=== PATIENT | male | born 1955 | race Two or more races ===

== ENCOUNTER → 2018-03-15 | Outpatient (CLI) | payer OTHER ==
[~2018-03-15] MED LIST: IOPAMIDOL 370 MG/ML 200 ML INFUS..BTL INJ ONE; SODIUM CHLORIDE 0.9% 250ML 250 ML ONE
[2018-03-15 17:00] LABS: BLOOD UREA NITROGEN 19 mg/dL (7-26); BUN/CREATININE RATIO 18 (6-25); CREATININE, SERUM 1.05 mg/dL (0.72-1.25); EST GLOMERULAR FILTRATION RATE > 60 ML/MIN (60-)
--- NOTE | 2018-03-15 18:50 | Diagnostic Imaging Report ---
PROCEDURE: CT ABDOMEN \T\ PELVIS W/WO CONTRAST TECHNIQUE: The abdomen and pelvis were scanned utilizing a multidetector helical scanner from the diaphragm to the lesser trochanter before and after the IV administration of 150 cc of Isovue 370 and the oral administration of water. Coronal and sagittal multiplanar reformations were obtained. COMPARISON: None. INDICATIONS: MICROSCOPIC HEMATURIA FINDINGS: LOWER THORAX: 6 mm calcified granuloma in the right lower lobe (series 3, image 10). Lung bases are otherwise clear.. HEPATOBILIARY: Subcentimeter hypodense lesions in hepatic segments VII and VIII (series 6, images 30 to, 33 and 34), which are too small to characterize, but likely represent small cysts. No other focal lesions. No biliary ductal dilation. Gallbladder is unremarkable. SPLEEN: No splenomegaly. PANCREAS: No focal masses or ductal dilatation. ADRENALS: No adrenal nodules. KIDNEYS/URETERS: 6-7 mm nonobstructing calculus in the left interpolar region (series 3, image 85). 3 mm nonobstructing calculus in the inferior pole of the left kidney (series 3, image 101). No ureteral calculi, hydronephrosis, or obstruction. No solid enhancing masses. There is good contrast opacification of bilateral renal collecting systems, renal pelves, and ureters. No filling defects, strictures, or extrinsic compressions. PELVIC ORGANS/BLADDER: No focal lesions or significant wall thickening. Prostate is unremarkable.. PERITONEUM / RETROPERITONEUM: No free air or fluid. LYMPH NODES: No lymphadenopathy. VESSELS: Mild atherosclerotic calcification of the abdominal aorta and proximal iliac vessels. GI TRACT: No bowel dilation or evidence of obstruction. Appendix is well identified and normal in caliber. BONES AND SOFT TISSUES: No aggressive lytic lesions. Multilevel degenerative disc changes in the lumbosacral spine, worse at L4-L5, and L5-S1. Mild degenerative changes in bilateral sacroiliac joints. Small bilateral fat containing inguinal hernias. IMPRESSION: 1. 3 and 6-7 mm nonobstructing calculi in the left kidney. No right renal, ureteral or bladder calculi, hydronephrosis, or obstruction. 2. No filling defects, strictures, or extrinsic compressions in the opacified portions of the genitourinary tract. Flavio Zapata M.D. Dictated by: Flavio Zapata M.D. on 03/15/2018 at 18:52 Electronically approved by: Flavio Zapata M.D. on 03/15/2018 at 18:52
== END ==
LOC: CT 16:03
PROVIDERS: ATTEND Urology
DX: R31.21 Asymptomatic microscopic hematuria (principal)
CPT/HCPCS: 36415; 74178; 82565; 84520; J7050; Q9967

== ENCOUNTER → 2018-06-07 | Day surgery (SDC) | payer OTHER ==
--- NOTE | 2018-06-05 18:18 | Diagnostic Imaging Report ---
PROCEDURE: Frontal and lateral views of the chest. COMPARISON: None. INDICATIONS: pre-op FINDINGS: Tip of the right lung apex is outside the field of view. Lines/tubes: None. Lungs: The lungs are well inflated and clear. There is no evidence of pneumonia or pulmonary edema. Pleura: There is no pleural effusion or pneumothorax. Heart and mediastinum: The heart and the mediastinum are normal. Bones: No acute bony abnormality. IMPRESSION: No acute cardiopulmonary disease. Dictated by: Oumar Bueno M.D. on 06/05/2018 at 18:23 Electronically approved by: Oumar Bueno M.D. on 06/05/2018 at 18:23
[~2018-06-07] MED LIST changes: +ATORVASTATIN CA80 MG PO; +CEFTRIAXONE SOD 1 GM VIAL ONE; +DESFLURANE 240 ML BTL INH ONE; +DEXAMETHASONE SOD PHOS INJ 4 MG/ML VIAL ONE; +ELIQUIS PO; +FENTANYL CITRATE/PF 100MCG/2 ML INJ ONE; +IOPAMIDOL 300MG/ML 50ML INFUS..BTL IV ONE; -IOPAMIDOL 370 MG/ML 200 ML INFUS..BTL INJ ONE; +LIDOCAINE HCL 2% LOCAL INJ 5 ML SDV VIAL INJ ONE; +MIDAZOLAM HCL 2 MG/2 ML VIAL ONE; +MULTI-VITAMIN1 EACH PO; +ONDANSETRON HCL INJ 2 MG/ML VIAL ONE; +PROPOFOL IV EMULSION 10 MG/ML 20 ML VIAL ONE; -SODIUM CHLORIDE 0.9% 250ML 250 ML ONE
--- NOTE | 2018-06-07 11:24 | Diagnostic Imaging Report ---
PROCEDURE:X-RAY ABDOMEN - KUB COMPARISON:[facility], CT ABDOMEN/PELVIS WOW, 03/15/2018, 17:34. INDICATIONS:PRE-OP LEFT ESWL FINDINGS: A 6 mm calcification projects over the left kidney, representing left renal stone on prior CT. Additional stone is likely obscured by overlying bowel gas. No stones projecting over the expected location of the ureters. There is a non-obstructed bowel-gas pattern. There are no acute osseous abnormalities. The lung bases are clear. CONCLUSION: A 6 mm left renal stone. Additional stone is likely obscured by overlying bowel gas. Dictated by: VERONICA PARKER M.D. on 06/07/2018 at 10:05 Electronically approved by: VERONICA PARKER M.D. on 06/07/2018 at 10:05
--- NOTE | 2018-07-30 14:08 | Operative Report ---
DATE OF PROCEDURE: June 07, 2018 PREOPERATIVE DIAGNOSES 1. Left nephrolithiasis. 2. Microhematuria. POSTOPERATIVE DIAGNOSES 1. Left nephrolithiasis. 2. Microhematuria. PROCEDURES PERFORMED 1. Left-sided extracorporeal shock lithotripsy (separate staged procedure performed for the left mid-caliceal 7-mm nephrolithiasis). 2. Cystourethroscopy with bilateral ureteral catheterization and retrograde ureteropyelography (separate procedure performed for microhematuria). 3. Interpretation of retrograde ureteropyelography. 4. Supervision of fluoroscopy. No radiologist present. ANESTHESIA: General. COMPLICATIONS: None. CLINICAL SUMMARY: Sumeet Saldana is a 63-year-old man with the above preoperative diagnoses. He is brought for the above procedures. He is aware of the risks of bleeding, infection, injury to adjacent structures, need for additional procedures and elected to proceed. OPERATIVE PROCEDURE IN DETAIL: Informed consent was verified. Sumeet Saldana was properly identified, taken to the operating room and placed on the lithotripsy table in the supine position. Anesthesia was uneventfully begun. The patient's left nephrolithiasis was localized with biplanar fluoroscopy. Total of 3000 shocks were delivered with some degree of fragmentation noted. The patient was carefully and gently repositioned in the dorsal lithotomy position with all pressure points well padded. His genitalia were prepared and draped in the usual sterile fashion. A 22.5-Kenyan cystoscope sheath with visual obturator in place was atraumatically inserted in the patient's urethra. It was guided down the unremarkable distal urethra, past some wide-caliber bands that were not obstructing, went through the prostate bed which was significant for visually obstructing bilobar BPH, and entered the patient's bladder which exhibited grade-2 trabeculations. There no tumors, no stones and no diverticula. Normally positioned and configured ureteral orifices were identified. An 8-Kenyan catheter was used cannulate each ureter, and retrograde ureteropyelograms were performed. Interpretation of retrograde ureteropyelography: Contrast was instilled in a retrograde fashion bilaterally. On the left-hand side, we identified filling defects in the middle venecia corresponding to the lithotripsy procedure. Otherwise, there were no tumors, no stones and no diverticula. Unobstructed drainage was observed bilaterally fluoroscopically. The patient's bladder was drained. Cystoscope was withdrawn. The patient was uneventfully reversed from anesthesia and taken to the recovery room in stable condition. Explicit postoperative instructions were given. Will follow the patient up in the office. In the future, we will obtain uroflowmetry and bladder ultrasonography to evaluate his BPH. Job#: [id number] JS
--- OUTSIDE RECORDS SUMMARY | 2018-08-01 00:41 | XMS REPORT ---
Author Author [facility] Address Unknown Phone Unavailable Care Team Providers Care Service Station Cashier Name Role Phone SHAYNE DYE Unavailable Unavailable Problems This patient has no known problems. Allergies, Adverse Reactions, Alerts This patient has no known allergies or adverse reactions. Medications This patient has no known medications. Results Test Description Test Time Test Comments Text Results Atomic Results Result Comments ABDOMEN-1VIEW (KUB) 2018-06-07 10:05:00 [place] [address] Patient Name: ENMA LÓPEZ MR #: [id number] : 1955 Age/Sex: 63/M Req #: [id number] Adm Physician: Ordered by: SHAYNE DYE MD Report #: [id number] Location: OR Room/Bed: Procedure: [id number] DX/ABDOMEN-1VIEW (KUB) Exam Date: 06/07/18 Exam Time: 0545 REPORT STATUS: Signed PROCEDURE: X- RAY ABDOMEN - KUB COMPARISON: [facility], CT ABDOMEN/ PELVIS WOW, 03/15/2018, 17:34. INDICATIONS: PRE-OP LEFT ESWL FINDINGS: A 6 mm calcification projects over the left kidney, representing left renal stone on prior CT. Additional stone is likely obscured by overlying bowel gas. No stones projecting over the expected location of the ureters. There is a non-obstructed bowel-gas pattern. There are no acute osseous abnormalities. The lung bases are clear. CONCLUSION: A 6 mm left renal stone. Additional stone is likely obscured by overlying bowel gas. Dictated by: VERONICA PARKER M.D. on 06/07/2018 at 10:05 Electronically approved by: VERONICA PARKER M.D. on 06/07/2018 at 10:05 Dictated By: VERONICA PARKER MD [id number] COPY TO: SHAYNE DYE MD CHEST 2 VIEWS 2018-06-05 18:23:00 [place] [address] Patient Name: ENMA LÓPEZ MR #: [id number] : 1955 Age/Sex: 63/M Req #: [id number] Adm Physician: Ordered by: SHAYNE DYE MD Report #: [id number] Location: OR Room/Bed: Procedure: [id number] DX/CHEST 2 VIEWS Exam Date: 06/05/18 Exam Time: 1756 REPORT STATUS: Signed PROCEDURE: Frontal and lateral views of the chest. COMPARISON: None. INDICATIONS: pre-op FINDINGS: Tip of the right lung apex is outside the field of view. Lines/tubes: None. Lungs: The lungs are well inflated and clear. There is no evidence of pneumonia or pulmonary edema. Pleura: There is no pleural effusion or pneumothorax. Heart and mediastinum: The heart and the mediastinum are normal. Bones: No acute bony abnormality. IMPRESSION: No acute cardiopulmonary disease. Dictated by: Oumar Canchola M.D. on 06/05/2018 at 18:23 Electronically approved by: Oumar Canchola M.D. on 06/05/2018 at 18:23 Dictated By: OUMAR CANCHOLA MD 22 Transcribed By: COOKIE on 06/05/181822 COPY TO: SHAYNE DYE MD CT ABDOMEN/PELVIS WOW [place] [address] Patient Name: ENMA LÓPEZ MR #: [id number] : 1955 Age/Sex: 62/M Req #: [id number] Adm Physician: Ordered by: SHAYNE DYE MD Report #: [id number] Location: CT Room/Bed: Procedure: [id number] CT/CT ABDOMEN/PELVIS WOW Exam Date: 03/15/18 Exam Time: 1730 REPORT STATUS: Signed PROCEDURE: CT ABDOMEN T PELVIS W/WO CONTRAST TECHNIQUE: The abdomen and pelvis were scanned utilizing a multidetector helical scanner from the diaphragm to the lesser trochanter before and after the IV administration of 150 cc of Isovue 370 and the oral administration of water. Coronal and sagittal multiplanar reformations were obtained. COMPARISON: None. INDICATIONS: MICROSCOPIC HEMATURIA FINDINGS: LOWER THORAX: 6 mm calcified granuloma in the right lower lobe (series 3, image 10). Lung bases are otherwise clear.. HEPATOBILIARY: Subcentimeter hypodense lesions in hepatic segments VII and VIII (series 6, images 30 to, 33 and 34), which are too small to characterize, but likely represent small cysts. No other focal lesions. No biliary ductal dilation. Gallbladder is unremarkable. SPLEEN: No splenomegaly. PANCREAS: No focal masses or ductal dilatation. ADRENALS: No adrenal nodules. KIDNEYS/URETERS: 6-7 mm nonobstructing calculus in the left interpolar region (series 3, image 85). 3 mm nonobstructing calculus in the inferior pole of the left kidney (series 3, image 101). No ureteral calculi, hydronephrosis, or obstruction. No solid enhancing masses. There is good contrast opacification of bilateral renal collecting systems, renal pelves, and ureters. No filling defects, strictures, or extrinsic compressions. PELVIC ORGANS/BLADDER: No focal lesions or significant wall thickening. Prostate is unremarkable.. PERITONEUM / RETROPERITONEUM: No free air or fluid. LYMPH NODES: No lymphadenopathy. VESSELS: Mild atherosclerotic calcification of the abdominal aorta and proximal iliac vessels. GI TRACT: No bowel dilation or evidence of obstruction. Appendix is well identified and normal in caliber. BONES AND SOFT TISSUES: No aggressive lytic lesions. Multilevel degenerative disc changes in the lumbosacral spine, worse at L4-L5, and L5- S1. Mild degenerative changes in bilateral sacroiliac joints. Small bilateral fat containing inguinal hernias. IMPRESSION: 1. 3 and 6-7 mm nonobstructing calculi in the left kidney. No right renal, ureteral or bladder calculi, hydronephrosis, or obstruction. 2. No filling defects, strictures, or extrinsic compressions in the opacified portions of the genitourinary tract. Kenn Zapata M.D. Dictated by: Kenn Zapata M.D. on 03/15/2018 at 18:52 Electronically approved by : Kenn Zapata M.D. on 03/15/2018 at 18:52 Dictated By: KENN ZAPATA MD 51 Transcribed By: COOKIE on 03/15/181851 COPY TO: SHAYNE DYE MD
--- OUTSIDE RECORDS SUMMARY | 2018-08-01 00:41 | XMS REPORT | Summary of Care ---
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) - Chronic diastolic (congestive) heart failure (Final) - Metabolic syndrome (Final) - Unspecified atrial flutter (Final) - Paroxysmal atrial fibrillation (Final) - Hypertensive heart disease with heart failure (Final) - Dysphagia, unspecified (Final) - Dysarthria and anarthria (Final) - Slurred speech (Final) - Coma scale, best motor response, obeys commands, at arrival to emergency department (Final) - Coma scale, eyes open, spontaneous, at arrival to emergency department (Final) - Coma scale, best verbal response, oriented, at arrival to emergency department ( Final) - NIHSS score 1 (Final) - Dizziness and giddiness (Final) - Hyperlipidemia, unspecified (Final) - Constipation, unspecified (Final) - 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) - half-way (current) use of aspirin (Final) - half-way (current) use of antithrombotics/antiplatelets (Final) - Discharge Disposition: Home or Self Care Attending Physician: Ronny Sheikh MD Admitting Physician: Ronny Sheikh MD Vital Signs 1 2 3 Most recent to oldest [Reference Range]: 185.42 cm (12/23/17 8:07 PM) Height 98.7 DegF (12/31/17 3:49 PM) 98.5 DegF (12/31/17 11:47 AM) 97.5 DegF (12/31/17 7:38 AM) Temperature Oral [96.4-99.1 DegF] 111/73 mmHg (12/31/17 3:49 PM) 132/85 mmHg (12/31/17 11:47 AM) 138/85 mmHg (12/31/17 7:38 AM) Blood Pressure [90-140/60-90 mmHg] 17 BRMIN (12/31/17 11:47 AM) 17 BRMIN (12/31/17 7:38 AM) 16 BRMIN (12/31/17 4:00 AM) Respiratory Rate [14-20 BRMIN] 62 bpm (12/31/17 3:49 PM) 68 bpm (12/31/17 11:47 AM) 57 bpm *LOW* (12/31/17 7:38 AM) Peripheral Pulse Rate [60-100 bpm] 100.085 kg (12/23/17 8:07 PM) 90.909 kg (12/23/17 2:24 PM) Weight 29.11 m2 (12/23/17 8:07 PM) Body Mass Index Problem List Condition Effective Dates Status Health Status Informant History of Active stroke(Confirmed) Hyperlipidemia(Confi Active rmed) Hypertension(Confirm Active ed) Ischemic Active stroke(Confirmed) Insulin Active resistance(Confirmed ) Allergies, Adverse Reactions, Alerts Substance Reaction Severity Status NKDA Active Medications acetaminophen 650 mg, Route: PO, Drug form: TAB, Q4H, Dosing Weight 90.909, kg, PRN Pain 1-3/ Temp > 100.4 F, Start date: 12/23/17 18:37:00 RADIOISOTOPE TECHNICIAN, Duration: 30 day, Stop date: 01/22/18 18:36:00 CDT Start Date: 12/23/17 Stop Date: 12/23/17 Status: Discontinued Alphagan P 0.1% ophthalmic solution 1 drp, BOTH EYES, BID, 0 Refill(s) Start Date: 12/29/17 Stop Date: 12/31/17 Status: Discontinued AMIODarone 200 mg, 1 tab, Route: PO, Drug form: TAB, Daily, Dosing Weight 100.085, kg, Start date: 12/25/17 9:00:00 RADIOISOTOPE TECHNICIAN, Duration: 30 day, Stop date: 01/23/18 9:00:00 CDT Notes: (Same as: Cordarone) Start Date: 12/25/17 Stop Date: 12/31/17 Status: Discontinued AMIODarone 200 mg oral tablet 200 mg=1 tab, PO, Daily, # 30 tab, 0 Refill(s), Pharmacy: [facility] Start Date: 12/31/17 Stop Date: 01/30/18 Status: Ordered apixaban 5 mg oral tablet 5 mg=1 tab, PO, Q12H, # 60 tab, 0 Refill(s), Pharmacy: [facility] Start Date: 12/31/17 Stop Date: 01/30/18 Status: Ordered aspirin 81 mg tablet, enteric coated 81 mg=1 tab, PO, Q24H, # 30 tab, 0 Refill(s), Pharmacy: [facility] Start Date: 12/31/17 Stop Date: 12/31/17 Status: Discontinued aspirin 81 mg tablet, enteric coated 81 mg, 1 tab, Route: PO, Drug form: ECTAB, Q24H, Dosing Weight 90.909, kg, Start date: 12/23/17 19:00:00 RADIOISOTOPE TECHNICIAN, Duration: 30 day, Stop date: 01/21/18 19:00: 00 CDT Notes: Do not crush or chew.(Same As: Ecotrin) Start Date: 12/23/17 Stop Date: 12/24/17 Status: Discontinued atorvastatin 10 mg, 1 tab, Route: PO, Drug form: TAB, Bedtime, Dosing Weight 90.909, kg, Start date: 12/23/17 21:00:00 RADIOISOTOPE TECHNICIAN, Duration: 30 day, Stop date: 01/21/18 21:00: 00 CDT Notes: (Same As: Lipitor) Start Date: 12/23/17 Stop Date: 12/24/17 Status: Discontinued atorvastatin 40 mg oral tablet 80 mg=2 tab, PO, Bedtime, # 60 tab, 0 Refill(s), Pharmacy: [facility] Start Date: 12/31/17 Stop Date: 01/30/18 Status: Ordered Azopt 1% ophthalmic suspension 1 drp, BOTH EYES, BID, 0 Refill(s) Start Date: 12/29/17 Stop Date: 12/31/17 Status: Discontinued clopidogrel 75 mg, 1 tab, Route: PO, Drug form: TAB, ONCE, Dosing Weight 100.085, kg, Priority: NOW, Start date: 12/23/17 23:16:00 RADIOISOTOPE TECHNICIAN, Stop date: 12/23/17 23:16:00 RADIOISOTOPE TECHNICIAN Notes: (Same As: Plavix) Start Date: 12/23/17 Stop Date: 12/23/17 Status: Completed clopidogrel 75 mg, 1 tab, Route: PO, Drug form: TAB, Daily, Dosing Weight 90.909, kg, Start date: 12/24/17 9:00:00 RADIOISOTOPE TECHNICIAN, Duration: 30 day, Stop date: 01/22/18 9:00:00 CDT Notes: (Same As: Plavix) Start Date: 12/24/17 Stop Date: 12/24/17 Status: Discontinued docusate 100 mg, Route: PO, Drug form: CAP, BID, Dosing Weight 90.909, kg, Start date: 9:00:00 RADIOISOTOPE TECHNICIAN, Duration: 30 day, Stop date: 01/22/18 17:00:00 CDT Start Date: 12/24/17 Stop Date: 12/23/17 Status: Canceled docusate sodium 100 mg oral capsule 100 mg, 1 cap, Route: PO, Drug form: CAP, BID, Dosing Weight 100.085, kg, Start date: 12/29/17 17:00:00 RADIOISOTOPE TECHNICIAN, Duration: 30 day, Stop date: 01/28/18 9:00:00 CDT Notes: (Same as: Colace) (Do Not Crush) Start Date: 12/29/17 Stop Date: 12/31/17 Status: Discontinued Dulcolax Laxative 10 mg, 1 supp, Route: WV, Drug form: SUPP, ONCE, Dosing Weight 100.085, kg, Start date: 12/27/17 10:43:00 RADIOISOTOPE TECHNICIAN, Stop date: 12/27/17 10:43:00 RADIOISOTOPE TECHNICIAN Notes: (Same As: Dulcolax, Bisco-Lax) Start Date: 12/27/17 Stop Date: 12/27/17 Status: Completed Eliquis 5 mg, 1 tab, Route: PO, Drug form: TAB, Q12H, Dosing Weight 100.085, kg, Start date: 12/24/17 21:00:00 RADIOISOTOPE TECHNICIAN, Duration: 30 day, Stop date: 01/23/18 9:00:00 CDT Notes: Same as: Eliquis Start Date: 12/24/17 Stop Date: 12/31/17 Status: Discontinued glycerin adult rectal suppository 1 supp, Route: WV, Drug Form: SUPP, Dosing Weight 100.085, kg, ONCE, NOW, Start date: 12/24/17 10:10:00 RADIOISOTOPE TECHNICIAN, Stop date: 12/24/17 10:10:00 RADIOISOTOPE TECHNICIAN Start Date: 12/24/17 Stop Date: 12/24/17 Status: Completed heparin 5,000 unit, Route: SUB-Q, Q8H, Dosing Weight 90.909, kg, Start date: 12/24/17 0: 00:00 RADIOISOTOPE TECHNICIAN, Stop date: 01/22/18 16:00:00 CDT Start Date: 12/24/17 Stop Date: 12/23/17 Status: Canceled hydrALAZINE 10 mg, 0.5 mL, Route: IV, Drug form: INJ, Q6H, Dosing Weight 90.909, kg, PRN Other -See Comment, Start date: 12/23/17 20:17:00 RADIOISOTOPE TECHNICIAN, Duration: 30 day, Stop date: 01/22/18 20:16:00 CDT Notes: (Same as: Apresoline)Push over 5 minutes Start Date: 12/23/17 Stop Date: 12/31/17 Status: Discontinued lactulose 10 g/15 mL oral syrup 20 gm, 30 ml, Route: PO, Drug form: SYRP, Q8H, Dosing Weight 100.085, kg, PRN Constipation, Start date: 12/24/17 9:44:00 RADIOISOTOPE TECHNICIAN, Duration: 30 day, Stop date: 9:43:00 CDT Notes: (Same as:Chronulac) Start Date: 12/24/17 Stop Date: 12/31/17 Status: Discontinued latanoprost ophthalmic 1 drp, Bedtime, 0 Refill(s) Start Date: 12/29/17 Stop Date: 12/31/17 Status: Discontinued Lipitor 80 mg, 2 tab, Route: PO, Drug form: TAB, Bedtime, Dosing Weight 100.085, kg, Start date: 12/24/17 21:00:00 RADIOISOTOPE TECHNICIAN, Duration: 30 day, Stop date: 01/22/18 21:00: 00 CDT Notes: (Same as: Lipitor) Start Date: 12/24/17 Stop Date: 12/31/17 Status: Discontinued meclizine 25 mg, 1 tab, Route: PO, Drug form: TAB, TID, Dosing Weight 90.909, kg, PRN Dizziness, Start date: 12/23/17 18:38:00 RADIOISOTOPE TECHNICIAN, Duration: 30 day, Stop date: 01/22 18:37:00 CDT Notes: (Same as: Antivert) Start Date: 12/23/17 Stop Date: 12/31/17 Status: Discontinued MiraLax 17 gm, 1 pkt, Route: PO, Drug form: PWDR, Daily, Dosing Weight 100.085, kg, PRN Constipation, Start date: 12/27/17 10:44:00 RADIOISOTOPE TECHNICIAN, Duration: 30 day, Stop date: 10:43:00 CDT Notes: Dissolve in 8 oz of water or juice.(Same as: Miralax) Start Date: 12/27/17 Stop Date: 12/29/17 Status: Voided With Results MiraLax 17 gm, 1 pkt, Route: PO, Drug form: PWDR, Daily, Dosing Weight 100.085, kg, Start date: 12/30/17 9:00:00 RADIOISOTOPE TECHNICIAN, Duration: 30 day, Stop date: 01/28/18 9:00:00 CDT Notes: Dissolve in 8 oz of water or juice.(Same as: Miralax) Start Date: 12/30/17 Stop Date: 12/31/17 Status: Discontinued Occupational Therapy See Instructions, MISC, ONCALL, Evaluate and Treat 2-3 times per week for2-4 weeks, # 1 unit, 0 Refill(s) Start Date: 12/24/17 Status: Ordered ondansetron 4 mg, Route: IVP, Q6H, Dosing Weight 90.909, kg, PRN Nausea & Vomiting, Start date: 12/23/17 18:37:00 RADIOISOTOPE TECHNICIAN, Duration: 30 day, Stop date: 01/22/18 18:36:00 CDT Start Date: 12/23/17 Stop Date: 12/23/17 Status: Discontinued Physical Therapy See Instructions, MISC, ONCALL, Evaluate and Treat 2-3 times per week for 4-6 weeks, # 1 ea, 0 Refill(s) Start Date: 12/24/17 Status: Ordered Saline Flush 0.9% 10 mL, Route: IVP, Drug Form: INJ, Dosing Weight 93.5, kg, PRN, PRN Line Flush, Start date: 12/23/17 14:27:00 RADIOISOTOPE TECHNICIAN, Duration: 30 day, Stop date: 01/22/18 15:26: 00 CDT Notes: preservative free. Start Date: 12/23/17 Stop Date: 12/31/17 Status: Discontinued Saline Flush 0.9% 10 ml, Route: IVP, Drug Form: INJ, Dosing Weight 90.909, kg, PRN, PRN Line Flush , Start date: 12/23/17 19:09:00 RADIOISOTOPE TECHNICIAN, Duration: 30 day, Stop date: 01/22/18 20:08 :00 CDT Start Date: 12/23/17 Stop Date: 12/23/17 Status: Discontinued Saline Flush 0.9% 10 ml, Route: IVP, Drug Form: INJ, Dosing Weight 90.909, kg, Q12H, Start date: 12/23/17 21:00:00 RADIOISOTOPE TECHNICIAN, Duration: 30 day, Stop date: 01/22/18 9:00:00 CDT Start Date: 12/23/17 Stop Date: 12/23/17 Status: Canceled Saline Flush 0.9% 10 ml, Route: IVP, Drug Form: INJ, Dosing Weight 90.909, kg, PRN, PRN Line Flush , Start date: 12/23/17 19:59:00 RADIOISOTOPE TECHNICIAN, Duration: 30 day, Stop date: 01/22/18 20:58 :00 CDT Notes: (Same as: BD Posiflush) Start Date: 12/23/17 Stop Date: 12/31/17 Status: Discontinued Saline Flush 0.9% 10 ml, Route: IVP, Drug Form: INJ, Dosing Weight 90.909, kg, Q12H, Start date: 12/23/17 21:00:00 RADIOISOTOPE TECHNICIAN, Duration: 30 day, Stop date: 01/22/18 9:00:00 CDT Notes: (Same as: BD Posiflush) Start Date: 12/23/17 Stop Date: 12/31/17 Status: Discontinued Saline Flush 0.9% 10 ml, Route: IVP, Drug Form: INJ, Dosing Weight 90.909, kg, PRN, PRN Line Flush , Start date: 12/23/17 19:12:00 RADIOISOTOPE TECHNICIAN, Duration: 30 day, Stop date: 01/22/18 20:11 :00 CDT Start Date: 12/23/17 Stop Date: 12/23/17 Status: Discontinued Saline Flush 0.9% 10 ml, Route: IVP, Drug Form: INJ, Dosing Weight 90.909, kg, Q12H, Start date: 12/23/17 21:00:00 RADIOISOTOPE TECHNICIAN, Duration: 30 day, Stop date: 01/22/18 9:00:00 CDT Start Date: 12/23/17 Stop Date: 12/23/17 Status: Canceled simethicone 80 mg, 1 tab, Route: PO, Drug form: CHEWTAB, Q4H, Dosing Weight 100.085, kg, PRN Gas, Start date: 12/25/17 21:14:00 RADIOISOTOPE TECHNICIAN, Duration: 30 day, Stop date: 21:13:00 CDT Notes: (Same as: Eda) Start Date: 12/25/17 Stop Date: 12/31/17 Status: Discontinued Speech Therapy See Instructions, MISC, ONCALL, Evaluate and Treat 1-2 times per week for 6-8 weeks, # 1 ea, 0 Refill(s) Start Date: 12/24/17 Status: Ordered tramadol 100 mg, 2 tab, Route: PO, Drug form: TAB, Q4H, Dosing Weight 100.085, kg, PRN Pain Score 4-6, Start date: 12/24/17 3:24:00 RADIOISOTOPE TECHNICIAN, Duration: 30 day, Stop date: 01/23/18 3:23:00 CDT Notes: Not to exceed 400mg/day. (Same As: Navneet) Start Date: 12/24/17 Stop Date: 12/31/17 Status: Discontinued tramadol 100 mg oral tablet, extended release 100 mg, 1 tab, Route: PO, Drug form: ERTAB, Q4H, PRN Pain Score 4-6, Start date : 12/24/17 3:10:00 RADIOISOTOPE TECHNICIAN, Duration: 30 day, Stop date: 01/23/18 3:09:00 CDT Start Date: 12/24/17 Stop Date: 12/24/17 Status: Discontinued Tylenol 650 mg, 2 tab, Route: PO, Drug form: TAB, Q4H, Dosing Weight 100.085, kg, PRN Pain Score 1-3, Start date: 12/24/17 3:10:00 RADIOISOTOPE TECHNICIAN, Duration: 30 day, Stop date: 01/23/18 3:09:00 CDT Notes: Do not exceed 4 gm/day. (Same as: Tylenol) Start Date: 12/24/17 Stop Date: 12/31/17 Status: Discontinued Results ELECTROLYTES Most recent to 1 oldest [Reference Range]: Sodium Lvl [135-145 139 mEq/L mEq/L] (12/23/17 3:12 PM) Potassium Lvl 3.7 mEq/L [3.5-5.1 mEq/L] (12/23/17 3:12 PM) Chloride Lvl [95-109 103 mEq/L mEq/L] (12/23/17 3:12 PM) CO2 [24-32 mEq/L] 29 mEq/L (12/23/17 3:12 PM) AGAP [10.0-20.0 10.7 mEq/L mEq/L] (12/23/17 3:12 PM) CHEM PANEL Most recent to 1 oldest [Reference Range]: Creatinine Lvl 1.13 mg/dL [0.50-1.40 mg/dL] (12/23/17 3:12 PM) eGFR 70 mL/min/1.73m2 1 *NA* (12/23/17 3:12 PM) BUN [7-22 mg/dL] 12 mg/dL (12/23/17 3:12 PM) B/C Ratio [6-25] 11 (12/23/17 3:12 PM) Glucose Lvl [70-99 120 mg/dL mg/dL] *HI* (12/23/17 3:12 PM) Total Protein 7.5 g/dL [6.4-8.4 g/dL] (12/23/17 3:12 PM) Albumin Lvl [3.5-5.0 4.0 g/dL g/dL] (12/23/17 3:12 PM) Globulin [2.7-4.2 3.5 g/dL g/dL] (12/23/17 3:12 PM) A/G Ratio [0.7-1.6] 1.1 (12/23/17 3:12 PM) Calcium Lvl 8.9 mg/dL [8.5-10.5 mg/dL] (12/23/17 3:12 PM) ALT [0-65 unit/L] 36 unit/L (12/23/17 3:12 PM) AST [0-37 unit/L] 14 unit/L (12/23/17 3:12 PM) Alk Phos [39-136 60 unit/L unit/L] (12/23/17 3:12 PM) Bili Total [0.2-1.3 0.9 mg/dL mg/dL] (12/23/17 3:12 PM) 1Result Comment: The eGFR is calculated using the CKD-EPI formula. In most young , healthy individuals the eGFR will be >90 mL/min/1.73m2. The eGFR declines with age. An eGFR of 60-89 may be normal in some populations, particularly the elderly, for whom the CKD-EPI formula has not been extensively validated. Use of the eGFR is not recommended in the following populations: Individuals with unstable creatinine concentrations, including patients and those with serious co-morbid conditions. Patients with extremes in muscle mass or diet. The data above are obtained from the National Kid[employer] Disease Education Program ( NKDEP) which additionally recommends that when the eGFR is used in patients with extremes of body mass index for purposes of drug dosing, the eGFR should be multiplied by the estimated BMI. CARDIAC ENZYMES Most recent to 1 oldest [Reference Range]: Total CK [12-191 132 unit/L unit/L] (12/23/17 3:12 PM) Troponin-I <0.02 ng/mL [0.00-0.40 ng/mL] (12/23/17 3:12 PM) LIPIDS Most recent to 1 oldest [Reference Range]: CHD Risk [4.00-7.30] 3.15 *LOW* (12/23/17 3:12 PM) Chol [<=199 mg/dL] 148 mg/dL (12/23/17 3:12 PM) Trig [<=149 mg/dL] 77 mg/dL (12/23/17 3:12 PM) HDL [>=61 mg/dL] 47 mg/dL *LOW* (12/23/17 3:12 PM) LDL (Calculated) 86 mg/dL [<=99 mg/dL] (12/23/17 3:12 PM) VLDL 15 *NA* (12/23/17 3:12 PM) SPECIAL CHEMISTRY Most recent to 1 oldest [Reference Range]: Hgb A1C [<=5.6 %] 6.0 % *HI* (12/23/17 3:12 PM) URINE AND STOOL Most recent to 1 oldest [Reference Range]: UA Turbidity [Clear] Clear (12/24/17 3:21 AM) UA Color [Yellow] Yellow *NA* (12/24/17 3:21 AM) UA pH [5.0-8.0] 6.0 (12/24/17 3:21 AM) UA Spec Grav 1.015 [<=1.030] (12/24/17 3:21 AM) UA Glucose [Negative Negative mg/dL mg/dL] *NA* (12/24/17 3:21 AM) UA Blood [Negative] Negative (12/24/17 3:21 AM) UA Ketones [Negative Negative mg/dL mg/dL] *NA* (12/24/17 3:21 AM) UA Protein [Negative Negative mg/dL mg/dL] (12/24/17 3:21 AM) UA Urobilinogen <=1.0 mg/dL [0.1-1.0 mg/dL] *NA* (12/24/17 3:21 AM) UA Bili [Negative] Negative *NA* (12/24/17 3:21 AM) UA Leuk Est Negative [Negative] (12/24/17 3:21 AM) UA Nitrite Negative [Negative] (12/24/17 3:21 AM) UA WBC [0-5 /HPF] 1 /HPF (12/24/17 3:21 AM) UA RBC [0-2 /HPF] 1 /HPF (12/24/17 3:21 AM) UA Sq Epi [Few /LPF] Occasional /LPF *NA* (12/24/17 3:21 AM) UA Mucus [None Seen Few /LPF /LPF] *NA* (12/24/17 3:21 AM) IMMUNOLOGY Most recent to 1 oldest [Reference Range]: RON [Negative] Negative (12/26/17 1:22 PM) Cardiolipin IgA 1.5 APL-U/mL [<=19.9 APL-U/mL] (12/26/17 1:22 PM) Cardiolipin IgG <1.6 GPL-U/mL [<=19.9 GPL-U/mL] (12/26/17 1:22 PM) Cardiolipin IgM 1.2 MPL-U/mL [<=19.9 MPL-U/mL] (12/26/17 1:22 PM) Beta2-Glycoprotein 0.5 unit/mL IgM [<=19.9 unit/mL] (12/26/17 1:22 PM) Beta2-Glycoprotein <1.4 unit/mL IgG [<=19.9 unit/mL] (12/26/17 1:22 PM) Beta2-Glycoprotein 1.5 unit/mL IgA [<=19.9 unit/mL] (12/26/17 1:22 PM) Homocyst Tot 7.2 uMol/L [3.7-13.9 uMol/L] (12/26/17 1:22 PM) HEMATOLOGY Most recent to 1 oldest [Reference Range]: WBC [3.7-10.4 K/CMM] 8.4 K/CMM (12/23/17 3:12 PM) RBC [4.70-6.10 4.96 M/CMM M/CMM] (12/23/17 3:12 PM) Hgb [14.0-18.0 g/dL] 15.7 g/dL (12/23/17 3:12 PM) Hct [42.0-54.0 %] 45.8 % (12/23/17 3:12 PM) MCV [80.0-94.0 fL] 92.2 fL (12/23/17 3:12 PM) MCH [27.0-31.0 pg] 31.7 pg *HI* (12/23/17 3:12 PM) MCHC [32.0-36.0 34.4 g/dL g/dL] (12/23/17 3:12 PM) RDW [11.5-14.5 %] 13.0 % (12/23/17 3:12 PM) MPV [7.4-10.4 fL] 8.0 fL (12/23/17 3:12 PM) Platelet [133-450 200 K/CMM K/CMM] (12/23/17 3:12 PM) Segs [45.0-75.0 %] 77.7 % *HI* (12/23/17 3:12 PM) Lymphocytes 15.3 % [20.0-40.0 %] *LOW* (12/23/17 3:12 PM) Monocytes [2.0-12.0 6.1 % %] (12/23/17 3:12 PM) Eosinophils [0.0-4.0 0.4 % %] (12/23/17 3:12 PM) Basophils [0.0-1.0 0.5 % %] (12/23/17 3:12 PM) Segs-Bands # 6.5 K/CMM [1.5-8.1 K/CMM] (12/23/17 3:12 PM) Lymphocytes # 1.3 K/CMM [1.0-5.5 K/CMM] (12/23/17 3:12 PM) Monocytes # [0.0-0.8 0.5 K/CMM K/CMM] (12/23/17 3:12 PM) PT [12.0-14.7 13.4 seconds seconds] (12/23/17 3:12 PM) INR [0.85-1.17] 1.02 (12/23/17 3:12 PM) F2 Mutation PCR Negative (12/26/17 1:22 PM) F2 Mut Interp FACTOR II PT: Negative INTERPRETATION: Molecular analysis for the Factor II (Prothrombin) [id number] mutation was negative. Other causes of elevated prothrombin levels and hereditary forms of venous thrombosis are not ruled out. Final diagnosis requires correlation with clinical history and other pertinent laboratory findings. Where appropriate, medical consultation and genetic counseling should be offered to inform and explain the risk implications and genetic implications of these test results. ASSAY LIMITATIONS: The assay uses the FDA-cleared Pinky Factor II (Prothrombin) [id number] IVD (Polymerase chain reaction/FRET detection)kit, Pinky MagNA Pure LC Instrument and the Pinky LightCycler 1.2 Instrument. A 165-bp fragment of Factor II gene(FII) containing the Factor II [id number] sequence is amplified in the assay. The assay is designed to detect the [id number] mutation only. Other causes of elevated prothrombin levels and hereditary forms of venous thrombosis are not ruled out. However, the melting curve analysis may implicate the presence of a possible rare mutation at position 15395 (Further testing will be recommended in the report). A minimum detection level is 198 copies of Factor II per reaction. The level of agreement between the Factor II(Prothrombin) [id number] Kit and sequence analysis was 98.9%. The test result must be interpreted along with the patient's clinical history and revelant laboratory data. This assay has been validated by [facility]. *NA* (12/26/17 1:22 PM) F5 Leiden PCR Negative (12/26/17 1:22 PM) F5 Leiden Intrp FACTOR V LEIDEN: Negative INTERPRETATION: Molecular analysis for the Factor V Leiden, [id number] mutation was negative. Other causes of activated protein C resistance and hereditary forms of venous thrombosis are not ruled out. Final diagnosis requires correlation with clinical history and other pertinent laboratory findings. Where appropriate, medical consultation and/or genetic counseling should be offered to inform and explain the risk implications and genetic implications of these test results. ASSAY LIMITATIONS: The assay uses the FDA-cleared Pinky Factor V Leiden IVD(Poymerase chain reaction/FRET detection)kit, Pinky Mojeek Pure LC Instrument and the Pinky LightCycler 1.2 Instrument. A 222-bp fragment of Factor V gene (FV) containing the Factor V Leiden sequence is amplified in the assay. The assay is designed to detect the G [id number] mutation only. Other causes of activated protein C resistance and hereditary forms of venous thrombosis are not ruled out. However,the melting curve analysis may implicate the presence of possible rare mutations at positions 1689, 1692 and 1696. (Further testing will be recommended in the report). A minimum detection level is 202 copies of Factor V Leiden per reaction. The level of agreement between the Factor V Leiden Kit and sequence analysis was 99.4%. The test result must be interpreted along with the patient's clinical history and relevant laboratory data. This assay has been validated by [facility]. *NA* (12/26/17 1:22 PM) AT III Func [77-140 101 % %] (12/26/17 1:22 PM) PTT [22.9-35.8 26.7 seconds seconds] (12/23/17 3:12 PM) dRVV Ratio [<=1.20] 1.34 *HI* (12/26/17 1:22 PM) dRVV Mix Ratio 1.10 [<=1.20] (12/26/17 1:22 PM) dRVV Confirmation 1.34 [<=1.20] *HI* (12/26/17 1:22 PM) Hex Phos N Negative [Negative] (12/26/17 1:22 PM) Lup Interp The DRVVT screen for lupus anticoagulant is abnormal; however, the hexagonal phospholipid neutralization test is negative. Clinical correlation is recommended with additional testing, to include repeat DRVVT, factor assays, and anticardiolipin antibody assays if clinically indicated. Interpretation performed at [facility]. *NA* (12/26/17 1:22 PM) Protein C Func 108 % [72-147 %] (12/26/17 1:22 PM) Protein S Func 94 % [54-137 %] (12/26/17 1:22 PM) Immunizations Given and Recorded Vaccine Date Status Refusal Reason pneumococcal 23-valent vaccine 12/20/17 Given Procedures Procedure Date Related Diagnosis Body Site Status Cataract surgery Completed Colonoscopy Completed Social History Social History Type Response Smoking Status Never smoker; Exposure to Tobacco Smoke None; Cigarette Smoking Last 365 Days No; Reg Smoking Cessation Counseling No entered on: 12/23/17 Assessment and Plan Extracted from: Title: Clinical Document Author: Ronny Sheikh MD Date: 01/01/18 Date of admission: 12/23/2017 Date of discharge: 12/31/2017 Discharge diagnoses 1. Acute CVA 2. Atrial ablation, new onset History present illness Patient presented with dysarthria. He was found to have acute stroke on MRI. Source of stroke likely is cardioembolic due to finding of new atrial fibrillation this admission. He was started on Eliquis and amiodarone. Patient remained in normal sinus rhythm. PT OT evaluation was obtained. Rehab evaluation was obtained. Initially the idea was to send the patient to inpatient rehab however, there was significant improvement in his physical capacity. Therefore inpatient rehab was denied. Family was quite upset at this but we have explained the reasoning. The patient will receive outpatient speech therapy also. Patient seen by rehab services, cardiology and neurology on the day of discharge. Patient seen and examined on the day of discharge. Discharge condition fair Discharge home Activity as tolerated Please see discharge medicine consultation form Heart healthy diet Follow-up with primary care physician, cardiology, neurology, and rehab services. Extracted from: Title: Clinical Document Author: Juan Miguel Christopher MD Date: 12/31/17 PM&R PROGRESS NOTE CHIEF COMPLAINT IDENTIFICATION: A 62-year-old man being seen for ongoing rehabilitation needs after having acute bilateral posterior circulation strokes. INTERVAL EVENTS AND SUBJECTIVE All interval events reviewed. No new fevers, chills, nausea, vomiting, chest pain, palpitations, headaches, or dizziness. Cognition still very slow. Recall difficult. Good participation. Ambulation into the hallway today with me. PHYSICAL EXAMINATION: Vitals and Temp: VitalsTmp(F)[id number] 12/31 [id number]------ 12/31 [id number]--- 12/31 [id number]--- 12/31 00:[id number]--- 12/30 20:[id number]--- 24 Hr Tmax: 98.5F (36.94c) at 12/31 11:47Vital Signs are the last 5 in the past 48 hours. GENERAL: Well-nourished, sitting at the bedside. PSYCH: He is alert. He is able to tell me he is in the hospital with a list of cues. He has difficulty telling me the year. He is able to tell me the president, but only when given 2 options. He is able to follow simple 1-step directions, but has difficulty with 2-step directions. He has word finding difficulties with watch and stethoscope. HEENT: Pupils equal, round, reactive to light. Extraocular muscles intact. Moist mucous membranes. CARDIOVASCULAR: 2+ bilateral upper extremity pulses, regular rate and rhythm, all extremities, warm, well-perfused. PULMONARY: Respirations unlabored without dyspnea. ABDOMEN: Doughy, nontender, nondistended. GENITOURINARY: No Estrella. SKIN: No breakdown. NEUROMUSCULOSKELETAL: Cognitive impairments as above. He has some generalized weakness and incoordination involving the hands and the feet. Fast and fine finger movements are delayed motor initiation is delayed. Overall, though, strength is unbreakable. AMbulation with CGA, good endurance. Unable to stand with tandem gait. Unable to do single leg stance. LABORATORY DATA: Labs (Last four charted values) WBC 8.4(DEC 23) Hgb 15.7(DEC 23) Hct 45.8(DEC 23) Plt 200(DEC 23) Na 139(DEC 23) K 3.7(DEC 23) CO2 29(DEC 23) Cl 103(DEC 23) Cr 1.13(DEC 23) BUN 12(DEC 23) Glucose Random H 120(DEC 23) Ca 8.9(DEC 23) PT 13.4(DEC 23) INR 1.02(DEC 23) PTT 26.7(DEC 23) Troponin <0.02(DEC 23) Total CK 132(DEC 23) IMAGING STUDIES: No new imaging. ASSESSMENT AND PLAN: This is a 62-year-old man with: 1. Acute bilateral posterior circulation ischemic strokes: This is despite dual antiplatelets. He is started on the Eliquis. Neurology is following. He has generalized weakness, incoordination and memory recall, potential aphasia. Continue the therapies. 2. Hypertension. Hyperlipidemia: Fairly well controlled. Continue carbohydrate control diet and Lipitor. 3. Rehabilitation for deficits in mobility, ADLs, IADLs, cognition, communication, executive functioning: I reviewed all therapy notes and also discussed at the bedside and I observed the therapy treatment sessions. -All interval therapy notesa reviewed. -requiring cognitive supervision. -Ambulation without the walker improving to supervision. -Needs cues for pathfinding. -self-directing ADLS. -Improving safety awareness. -insurance has now formally denied acute inpatient rehab. -Will work to transition program to the outpatient clinics with PT, OT and [employer]. -discussed with case mgmt. -Therapy ordered. > 35 minutes of clinical time was spent with the patient performing history, examination, coordination of care and education, with >50% spent on coordination of care and counseling. Extracted from: Title: Clinical Document Author: Ronny Sheikh MD Date: 12/23/17 Date of admission on 12/23/19 Reason for admission 1. Worsening slurred speech 2. Acute CVA History of present illness Mr. Saldana is a 62-year-old man with recent bilateral cerebellar and left occipital CVA, hypertension and hyperlipidemia who comes in for evaluation of worsening slurred speech and memory problems that appear to begin this morning at approximately 10 AM. Patient was admitted just a few days ago and was found to have acute bilateral cerebellar stroke. Evaluation was done including MRA of the neck and echocardiogram and patient was discharged home after PT/OT evaluation with neurology evaluation. Patient denies having any headache. Per the family, after being discharged 12/20 the patient gradually improved and his vertigo and other symptoms improved. However, this morning he appear to be slurring his speech and having difficulty recalling things that have been just a few hours ago. Patient himself denies having any focal weakness in his arms or legs. Denies having any headache or vision changes. Patient himself feels asymptomatic at this time. Denies any chest pain or palpitations. Denies any recent fever or chills. Past medical history 1. Primary hypertension 2. Hyperlipidemia 3. CVA Medications At Home 1. Atorvastatin, Plavix, aspirin, meclizine. Past surgical history 1. Cataract surgery Social history 1. Denies any tobacco or alcohol use. Allergies: No known drug allergies Family history: Reviewed but noncontributory Review systems: As per HPI Physical examination Vitals: Blood pressure systolic of 152/75, temperature 98.1. Heart rate 53. Respiratory 16. 97% room air. General: Awake alert oriented no acute distress. HEENT: Mild left facial droop. Slurred speech noted. Neurologic: No facial asymmetry except left facial droop (mild). Motor strength of 5 out of 5 in bilateral upper and lower extremities. Cardiovascular regular rhythm S1-S2 Lungs: Clear to auscultation bilaterally. Abdomen: Soft nontender rebound or guarding. Eczematous: No peripheral edema. Skin: No skin rashes are seen. Physical laboratory data Sodium 131. Glucose of 120. Hemoglobin of 15. Platelets of 200. Chest x-ray: No acute findings CT of the brain:IMPRESSION: 1. New left occipital infarct. 2. Evolution of subacute small right cerebellar infarct from prior MRI. 3. No acute intracranial hemorrhage. Assessment and plan Mr. Saldana is a 62-year-old man who comes in with slurred speech and is found to have acute left occipital infarct. She is found to have evolution of the known cerebellar infarct with increase in size from 1.8-3.5 cm. Acute left occipital infarct on CT Obtain MRI of the brain. Neurology had seen the patient. To be admitted for possible KARSON to rule out cardiac source. Obtain cardiology consultation. Admit to telemetry. NSR now. obtain PT/OT evaluation, speech evaluation, barium swallow. Start aspirin/Plavix/atorvastatin. Hypertension Systolic acceptable in the 130s-150s. Monitor closely. Leave hydralazine with parameters. Vertigo Not an active issue at this time. Will leave meclizine as needed. DVT prophylaxis: SCDs Disposition: Pending evaluation as above
--- OUTSIDE RECORDS SUMMARY | 2018-08-01 00:41 | XMS REPORT | Summary of Care ---
Author Author [facility] Address Unknown Phone Unavailable Encounter [facility] Jaspal(FIN) [id number] Date(s): 01/02/18 - 01/31/18 [facility] Encounter Diagnosis Memory deficit following cerebral infarction (Final) - 02/06/18 Other speech and language deficits following cerebral infarction (Final) - Hemiplegia and hemiparesis following cerebral infarction affecting unspecified side (Final) - Muscle weakness (generalized) (Final) - Discharge Disposition: Home or Self Care Attending Physician: Shorty Gibson MD Vital Signs No data available for this section Problem List Condition Effective Dates Status Health Status Informant History of Active stroke(Confirmed) Hyperlipidemia(Confi Active rmed) Hypertension(Confirm Active ed) Ischemic Active stroke(Confirmed) Insulin Active resistance(Confirmed ) Allergies, Adverse Reactions, Alerts Substance Reaction Severity Status NKDA Active Medications No data available for this section Results No data available for this section Immunizations Given and Recorded Vaccine Date Status Refusal Reason pneumococcal 23-valent vaccine 12/20/17 Given Procedures Procedure Date Related Diagnosis Body Site Status Cataract surgery Completed Colonoscopy Completed Social History Social History Type Response Smoking Status Never smoker; Exposure to Tobacco Smoke None; Cigarette Smoking Last 365 Days No; Reg Smoking Cessation Counseling No entered on: 12/23/17 Assessment and Plan No data available for this section
--- OUTSIDE RECORDS SUMMARY | 2018-08-01 00:41 | XMS REPORT | Summary of Care ---
Author Author [facility] Organization [facility] Address Unknown Phone Unavailable Encounter [facility] [employer](FIN) [id number] Date(s): 12/18/17 - 12/20/17 [facility] [address] [place] [address]- Encounter Diagnosis Cerebral infarction, unspecified (Final) - 12/26/17 Chronic diastolic (congestive) heart failure (Final) - Hypokalemia (Final) - Prediabetes (Final) - Dystonia, unspecified (Final) - Coma scale, best motor response, obeys commands, at arrival to emergency department (Final) - Coma scale, eyes open, spontaneous, at arrival to emergency department (Final) - Coma scale, best verbal response, oriented, at arrival to emergency department ( Final) - Encounter for immunization (Final) - NIHSS score 0 (Final) - Discharge Disposition: Home or Self Care Attending Physician: Ronny Sheikh MD Admitting Physician: Ronny Sheikh MD Vital Signs 1 2 3 Most recent to oldest [Reference Range]: 185.42 cm (12/18/17 5:39 PM) 185.42 cm (12/18/17 3:04 PM) 185.42 cm (12/18/17 6:55 AM) Height 98.7 DegF (12/20/17 11:41 AM) 98.4 DegF (12/20/17 7:54 AM) 97.9 DegF (12/20/17 4:23 AM) Temperature Oral [96.4-99.1 DegF] 130/81 mmHg (12/20/17 11:41 AM) 142/77 mmHg *HI* (12/20/17 7:54 AM) 133/81 mmHg (12/20/17 4:23 AM) Blood Pressure [90-140/60-90 mmHg] 18 BRMIN (12/20/17 11:41 AM) 18 BRMIN (12/20/17 7:54 AM) 18 BRMIN (12/20/17 4:23 AM) Respiratory Rate [14-20 BRMIN] 56 bpm *LOW* (12/20/17 11:41 AM) 60 bpm (12/20/17 7:54 AM) 51 bpm *LOW* (12/20/17 4:23 AM) Peripheral Pulse Rate [60-100 bpm] 93.5 kg (12/19/17 9:29 AM) 93.636 kg (12/18/17 5:39 PM) 94.545 kg (12/18/17 3:04 PM) Weight 27.24 m2 (12/18/17 5:39 PM) 27.5 m2 (12/18/17 3:04 PM) 27.5 m2 (12/18/17 6:55 AM) Body Mass Index Problem List Condition Effective Dates Status Health Status Informant History of Active stroke(Confirmed) Hyperlipidemia(Confi Active rmed) Hypertension(Confirm Active ed) Ischemic Active stroke(Confirmed) Insulin Active resistance(Confirmed ) Allergies, Adverse Reactions, Alerts Substance Reaction Severity Status NKDA Active Medications *Please update height/weight/allergies on profile *Please update height/weight/allergies on profile, ATTN:CHRISTIANO, Drug form: MISC, Route: MISC, Q30Min, 12/18/17 15:00:00 CRITICAL CARE REGISTERED NURSE, Duration: 30 day, Stop date: 15:30:00 CDT Start Date: 12/18/17 Stop Date: 12/18/17 Status: Deleted aspirin 81 mg tablet, enteric coated 81 mg=1 tab, PO, Q24H, # 30 tab, 0 Refill(s), Pharmacy: [facility] [place] [facility] Start Date: 12/20/17 Stop Date: 12/31/17 Status: Discontinued aspirin 81 mg tablet, enteric coated 81 mg=1 tab, PO, Q24H, 0 Refill(s) Start Date: 12/20/17 Stop Date: 12/20/17 Status: Deleted aspirin 81 mg tablet, enteric coated 81 mg, 1 tab, Route: PO, Drug form: ECTAB, Q24H, Dosing Weight 94.545, kg, Start date: 12/18/17 15:00:00 CRITICAL CARE REGISTERED NURSE, Duration: 30 day, Stop date: 01/16/18 15:00: 00 CDT Notes: Do not crush or chew.(Same As: Ecotrin) Start Date: 12/18/17 Stop Date: 12/20/17 Status: Discontinued atorvastatin 10 mg, 1 tab, Route: PO, Drug form: TAB, Bedtime, Dosing Weight 93.5, kg, Start date: 12/19/17 21:00:00 CRITICAL CARE REGISTERED NURSE, Duration: 30 day, Stop date: 01/17/18 21:00:00 CDT Notes: (Same As: Lipitor) Start Date: 12/19/17 Stop Date: 12/20/17 Status: Discontinued atorvastatin 10 mg oral tablet 10 mg=1 tab, PO, Bedtime, 0 Refill(s) Start Date: 12/20/17 Stop Date: 12/20/17 Status: Deleted atorvastatin 10 mg oral tablet 10 mg=1 tab, PO, Bedtime, # 30 tab, 0 Refill(s), Pharmacy: [facility] [place] Start Date: 12/20/17 Stop Date: 12/31/17 Status: Discontinued clopidogrel 75 mg oral tablet 75 mg=1 tab, PO, Daily, 0 Refill(s) Start Date: 12/20/17 Stop Date: 12/20/17 Status: Deleted clopidogrel 75 mg oral tablet 75 mg=1 tab, PO, Daily, # 30 tab, 0 Refill(s), Pharmacy: [facility] [place] [facility] Start Date: 12/20/17 Stop Date: 12/31/17 Status: Discontinued Lipitor 10 mg, Route: PO, Drug form: TAB, ONCE, Dosing Weight 93.636, kg, Start date: 19:56:00 CRITICAL CARE REGISTERED NURSE, Stop date: 12/18/17 19:56:00 CRITICAL CARE REGISTERED NURSE Start Date: 12/18/17 Stop Date: 12/18/17 Status: Discontinued Lipitor 80 mg, 2 tab, Route: PO, Drug form: TAB, Bedtime, Dosing Weight 93.636, kg, Start date: 12/18/17 21:00:00 CRITICAL CARE REGISTERED NURSE, Duration: 30 day, Stop date: 01/16/18 21:00: 00 CDT Notes: (Same as: Lipitor) Start Date: 12/18/17 Stop Date: 12/19/17 Status: Discontinued meclizine 25 mg, Route: PO, Drug form: TAB, ONCE, Dosing Weight 94.545, kg, Priority: STAT , Start date: 12/18/17 7:50:00 CRITICAL CARE REGISTERED NURSE, Stop date: 12/18/17 7:50:00 CRITICAL CARE REGISTERED NURSE Start Date: 12/18/17 Stop Date: 12/18/17 Status: Completed meclizine 25 mg, 1 tab, Route: PO, Drug form: TAB, TID, Dosing Weight 94.545, kg, PRN as needed for dizziness, Start date: 12/18/17 14:48:00 CRITICAL CARE REGISTERED NURSE, Duration: 30 day, Stop date: 01/17/18 14:47:00 CDT Notes: (Same as: Ayush) Start Date: 12/18/17 Stop Date: 12/20/17 Status: Discontinued meclizine 25 mg oral tablet 25 mg=1 tab, PO, TID, PRN as needed for dizziness, 0 Refill(s) Start Date: 12/20/17 Stop Date: 12/31/17 Status: Discontinued meclizine 25 mg oral tablet 25 mg=1 tab, PO, TID, PRN for motion sickness, X 20 day, # 60 tab, 3 Refill(s), Pharmacy: [facility] [place] [facility] Start Date: 12/20/17 Stop Date: 12/31/17 Status: Discontinued multivitamin with minerals 1 tab, PO, Daily, 0 Refill(s) Start Date: 12/18/17 Stop Date: 12/20/17 Status: Discontinued ondansetron 4 mg, 2 mL, Route: IVP, Drug form: INJ, ONCE, Dosing Weight 94.545, kg, Priority : STAT, Start date: 12/18/17 14:06:00 CRITICAL CARE REGISTERED NURSE, Stop date: 12/18/17 14:06:00 CRITICAL CARE REGISTERED NURSE Notes: (Same as: Nelson) MEDICATION WASTE Product Size: 4 mgProduct Wasted: ___ mg Start Date: 12/18/17 Stop Date: 12/18/17 Status: Completed Plavix 75 mg, 1 tab, Route: PO, Drug form: TAB, Daily, Dosing Weight 93.636, kg, Start date: 12/19/17 9:00:00 CRITICAL CARE REGISTERED NURSE, Duration: 30 day, Stop date: 01/17/18 9:00:00 CDT Notes: (Same As: Plavix) Start Date: 12/19/17 Stop Date: 12/20/17 Status: Discontinued pneumococcal 23-valent vaccine 0.5 mL, Route: IM, Drug Form: INJ, Daily, Start date: 12/20/17 13:00:00 CRITICAL CARE REGISTERED NURSE, Duration: 1 doses or times, Stop date: 12/20/17 13:00:00 CRITICAL CARE REGISTERED NURSE Notes: TUBE TO 1B NOW PLEASE - PT DISCHARGINGTUBE TO 1B NOW PLEASE - PT DISCHARGINGTUBE TO 1B NOW PLEASE - PT DISCHARGING(Same as: Pneumovax 23) Refrigerate Start Date: 12/20/17 Stop Date: 12/20/17 Status: Completed promethazine 12.5 mg oral tablet 12.5 mg=1 tab, PO, Q6H, PRN Nausea & Vomiting, # 28 tab, 2 Refill(s), Pharmacy: [facility] #[facility] Start Date: 12/20/17 Stop Date: 12/31/17 Status: Discontinued Saline Flush 0.9% 10 ml, Route: IVP, Drug Form: INJ, Dosing Weight 94.545, kg, PRN, PRN Line Flush , Start date: 12/18/17 14:11:00 CRITICAL CARE REGISTERED NURSE, Duration: 30 day, Stop date: 01/17/18 15:10 :00 CDT Notes: (Same as: BD Posiflush) Start Date: 12/18/17 Stop Date: 12/20/17 Status: Discontinued Saline Flush 0.9% 10 ml, Route: IVP, Drug Form: INJ, Dosing Weight 94.545, kg, PRN, PRN Line Flush , Start date: 12/18/17 14:11:00 CRITICAL CARE REGISTERED NURSE, Duration: 30 day, Stop date: 01/17/18 15:10 :00 CDT Notes: (Same as: BD Posiflush) Start Date: 12/18/17 Stop Date: 12/20/17 Status: Discontinued Saline Flush 0.9% 10 ml, Route: IVP, Drug Form: INJ, Dosing Weight 94.545, kg, Q12H, Start date: 12/18/17 21:00:00 CRITICAL CARE REGISTERED NURSE, Duration: 30 day, Stop date: 01/17/18 9:00:00 CDT Notes: (Same as: BD Posiflush) Start Date: 12/18/17 Stop Date: 12/20/17 Status: Discontinued Sodium Chloride 0.9% (Bolus) IV 1,000 mL, 1000 ml/hr, Infuse Over: 1 hr, Route: IV, 1,000, Drug form: INJ, ONCE , Priority: STAT, Dosing Weight 94.545 kg, Start date: 12/18/17 7:50:00 CRITICAL CARE REGISTERED NURSE, Stop date: 12/18/17 7:50:00 CRITICAL CARE REGISTERED NURSE Start Date: 12/18/17 Stop Date: 12/18/17 Status: Completed Sodium Chloride 0.9% IV 1,000 mL 1,000 mL, Rate: 75 ml/hr, Infuse over: 13.3 hr, Route: IV, Dosing Weight 94.545 kg, Total Volume: 1,000, Start date: 12/18/17 14:11:00 CRITICAL CARE REGISTERED NURSE, Duration: 30 day, Stop date: 01/17/18 14:10:00 CDT, 2.22, m2 Start Date: 12/18/17 Stop Date: 12/20/17 Status: Discontinued Solu-MEDROL 125 mg, 2 mL, Route: IV, Drug form: INJ, ONCE, Dosing Weight 94.545, kg, Start date: 12/18/17 14:48:00 CRITICAL CARE REGISTERED NURSE, Stop date: 12/18/17 14:48:00 CRITICAL CARE REGISTERED NURSE Notes: (Same as:Solu-MEDROL, A-Methapred) Start Date: 12/18/17 Stop Date: 12/18/17 Status: Completed Zofran 4 mg, Route: IVP, Drug form: INJ, ONCE, Dosing Weight 94.545, kg, Priority: STAT , Start date: 12/18/17 7:50:00 CRITICAL CARE REGISTERED NURSE, Stop date: 12/18/17 7:50:00 CRITICAL CARE REGISTERED NURSE Start Date: 12/18/17 Stop Date: 12/18/17 Status: Completed Zofran 4 mg oral tablet 4 mg=1 tab, PO, Q6H, PRN Nausea/Vomiting, # 30 tab, 2 Refill(s), Pharmacy: [facility] [place] [facility] Start Date: 12/20/17 Stop Date: 12/31/17 Status: Discontinued Results ELECTROLYTES 1 2 3 Most recent to oldest [Reference Range]: 140 mEq/L (12/19/17 3:46 AM) 138 mEq/L (12/18/17 8:05 AM) Sodium Lvl [135-145 mEq/L] 3.6 mEq/L (12/19/17 3:46 AM) 3.4 mEq/L *LOW* (12/18/17 8:05 AM) Potassium Lvl [3.5-5.1 mEq/L] 108 mEq/L (12/19/17 3:46 AM) 104 mEq/L (12/18/17 8:05 AM) Chloride Lvl [95-109 mEq/L] 24 mEq/L (12/19/17 3:46 AM) 23 mEq/L *LOW* (12/18/17 8:05 AM) CO2 [24-32 mEq/L] 11.6 mEq/L (12/19/17 3:46 AM) 14.4 mEq/L (12/18/17 8:05 AM) AGAP [10.0-20.0 mEq/L] CHEM PANEL 1 2 3 Most recent to oldest [Reference Range]: 0.92 mg/dL (12/19/17 3:46 AM) 1.13 mg/dL (12/18/17 8:05 AM) Creatinine Lvl [0.50-1.40 mg/dL] 90 mL/min/1.73m2 1 *NA* (12/19/17 3:46 AM) 70 mL/min/1.73m2 2 *NA* (12/18/17 8:05 AM) eGFR 12 mg/dL (12/19/17 3:46 AM) 16 mg/dL (12/18/17 8:05 AM) BUN [7-22 mg/dL] 14 (12/18/17 8:05 AM) B/C Ratio [6-25] 109 mg/dL *HI* (12/19/17 3:46 AM) 173 mg/dL *HI* (12/18/17 8:05 AM) Glucose Lvl [70-99 mg/dL] 6.9 g/dL (12/18/17 8:05 AM) Total Protein [6.4-8.4 g/dL] 3.7 g/dL (12/18/17 8:05 AM) Albumin Lvl [3.5-5.0 g/dL] 3.2 g/dL (12/18/17 8:05 AM) Globulin [2.7-4.2 g/dL] 1.2 (12/18/17 8:05 AM) A/G Ratio [0.7-1.6] 8.3 mg/dL *LOW* (12/19/17 3:46 AM) 8.3 mg/dL *LOW* (12/18/17 8:05 AM) Calcium Lvl [8.5-10.5 mg/dL] 36 unit/L (12/18/17 8:05 AM) ALT [0-65 unit/L] 21 unit/L (12/18/17 8:05 AM) AST [0-37 unit/L] 54 unit/L (12/18/17 8:05 AM) Alk Phos [39-136 unit/L] 0.9 mg/dL (12/18/17 8:05 AM) Bili Total [0.2-1.3 mg/dL] 1Result Comment: The eGFR is calculated using [...] should be multiplied by the estimated BMI. 2Result Comment: The eGFR is calculated using the [...] multiplied by the estimated BMI. CARDIAC ENZYMES 1 2 3 Most recent to oldest [Reference Range]: 178 unit/L (12/18/17 8:05 AM) Total CK [12-191 unit/L] 1.5 ng/mL (12/18/17 8:05 AM) CK MB [0.5-3.6 ng/mL] 0.8 (12/18/17 8:05 AM) CK MB Index [0.0-2.5] <0.02 ng/mL (12/18/17 8:05 AM) Troponin-I [0.00-0.40 ng/mL] LIPIDS 1 2 3 Most recent to oldest [Reference Range]: 3.13 *LOW* (12/20/17 4:07 AM) 3.29 *LOW* (12/19/17 3:46 AM) 3.11 *LOW* (12/18/17 5:52 PM) CHD Risk [4.00-7.30] 147 mg/dL (12/20/17 4:07 AM) 171 mg/dL (12/19/17 3:46 AM) 171 mg/dL (12/18/17 5:52 PM) Chol [<=199 mg/dL] 90 mg/dL (12/20/17 4:07 AM) 83 mg/dL (12/19/17 3:46 AM) 47 mg/dL (12/18/17 5:52 PM) Trig [<=149 mg/dL] 47 mg/dL *LOW* (12/20/17 4:07 AM) 52 mg/dL *LOW* (12/19/17 3:46 AM) 55 mg/dL *LOW* (12/18/17 5:52 PM) HDL [>=61 mg/dL] 82 mg/dL (12/20/17 4:07 AM) 102 mg/dL *HI* (12/19/17 3:46 AM) 107 mg/dL *HI* (12/18/17 5:52 PM) LDL (Calculated) [<=99 mg/dL] 18 *NA* (12/20/17 4:07 AM) 17 *NA* (12/19/17 3:46 AM) 9 *NA* (12/18/17 5:52 PM) VLDL SPECIAL CHEMISTRY 1 2 3 Most recent to oldest [Reference Range]: 5.9 % *HI* (12/18/17 5:52 PM) Hgb A1C [<=5.6 %] URINE AND STOOL 1 2 3 Most recent to oldest [Reference Range]: Slight *ABN* (12/18/17 12:14 PM) UA Turbidity [Clear] Ltyellow *NA* (12/18/17 12:14 PM) UA Color 8.0 (12/18/17 12:14 PM) UA pH [5.0-8.0] 1.015 (12/18/17 12:14 PM) UA Spec Grav [<=1.030] Negative mg/dL *NA* (12/18/17 12:14 PM) UA Glucose [Negative mg/dL] Negative (12/18/17 12:14 PM) UA Blood [Negative] Negative mg/dL *NA* (12/18/17 12:14 PM) UA Ketones [Negative mg/dL] Negative mg/dL (12/18/17 12:14 PM) UA Protein [Negative mg/dL] <=1.0 mg/dL *NA* (12/18/17 12:14 PM) UA Urobilinogen [0.1-1.0 mg/dL] Negative *NA* (12/18/17 12:14 PM) UA Bili [Negative] Negative (12/18/17 12:14 PM) UA Leuk Est [Negative] Negative (12/18/17 12:14 PM) UA Nitrite [Negative] 1 /HPF (12/18/17 12:14 PM) UA WBC [0-5 /HPF] 2 /HPF (12/18/17 12:14 PM) UA RBC [0-2 /HPF] None Seen *NA* (12/18/17 12:14 PM) UA Sq Epi Few /LPF *NA* (12/18/17 12:14 PM) UA Mucus [None Seen /LPF] Moderate /HPF *ABN* (12/18/17 12:14 PM) UA [place] Yeast [None Seen /HPF] HEMATOLOGY 1 2 3 Most recent to oldest [Reference Range]: 9.1 K/CMM (12/19/17 3:46 AM) 7.5 K/CMM (12/18/17 8:05 AM) WBC [3.7-10.4 K/CMM] 4.66 M/CMM *LOW* (12/19/17 3:46 AM) 4.74 M/CMM (12/18/17 8:05 AM) RBC [4.70-6.10 M/CMM] 14.8 g/dL (12/19/17 3:46 AM) 15.1 g/dL (12/18/17 8:05 AM) Hgb [14.0-18.0 g/dL] 43.0 % (12/19/17 3:46 AM) 44.1 % (12/18/17 8:05 AM) Hct [42.0-54.0 %] 92.3 fL (12/19/17 3:46 AM) 93.1 fL (12/18/17 8:05 AM) MCV [80.0-94.0 fL] 31.8 pg *HI* (12/19/17 3:46 AM) 31.9 pg *HI* (12/18/17 8:05 AM) MCH [27.0-31.0 pg] 34.4 g/dL (12/19/17 3:46 AM) 34.2 g/dL (12/18/17 8:05 AM) MCHC [32.0-36.0 g/dL] 13.3 % (12/19/17 3:46 AM) 12.9 % (12/18/17 8:05 AM) RDW [11.5-14.5 %] 8.1 fL (12/19/17 3:46 AM) 8.4 fL (12/18/17 8:05 AM) MPV [7.4-10.4 fL] 189 K/CMM (12/19/17 3:46 AM) 170 K/CMM (12/18/17 8:05 AM) Platelet [133-450 K/CMM] 71.4 % (12/19/17 3:46 AM) 71.7 % (12/18/17 8:05 AM) Segs [45.0-75.0 %] 20.2 % (12/19/17 3:46 AM) 21.4 % (12/18/17 8:05 AM) Lymphocytes [20.0-40.0 %] 7.3 % (12/19/17 3:46 AM) 5.7 % (12/18/17 8:05 AM) Monocytes [2.0-12.0 %] 0.9 % (12/19/17 3:46 AM) 1.2 % (12/18/17 8:05 AM) Eosinophils [0.0-4.0 %] 0.2 % (12/19/17 3:46 AM) Basophils [0.0-1.0 %] 6.5 K/CMM (12/19/17 3:46 AM) 5.4 K/CMM (12/18/17 8:05 AM) Segs-Bands # [1.5-8.1 K/CMM] 1.8 K/CMM (12/19/17 3:46 AM) 1.6 K/CMM (12/18/17 8:05 AM) Lymphocytes # [1.0-5.5 K/CMM] 0.7 K/CMM (12/19/17 3:46 AM) 0.4 K/CMM (12/18/17 8:05 AM) Monocytes # [0.0-0.8 K/CMM] 0.1 K/CMM (12/19/17 3:46 AM) 0.1 K/CMM (12/18/17 8:05 AM) Eosinophils # [0.0-0.5 K/CMM] 13.7 seconds (12/18/17 8:05 AM) PT [12.0-14.7 seconds] 1.05 (12/18/17 8:05 AM) INR [0.85-1.17] 23.3 seconds (12/18/17 8:05 AM) PTT [22.9-35.8 seconds] Immunizations Given and Recorded Vaccine Date Status [...] Clinical Document Author: Ronny Sheikh MD Date: 12/20/17 Date of admission: 12/18/2017 Date of discharge: 12/20/2017 Discharge diagnoses 1. Acute ischemic stroke 2. Vertigo Hospital course Patient presented with balance issues and vertigo. Patient was found to have bilateral cerebellar stroke on MRI of the brain. Causes attributed to small vessel disease. Echocardiogram was negative. Patient was not a candidate for TPA. Patient will follow up with neurology as outpatient and continue physical therapy. PT OT evaluation was obtained and home discharge was recommended. Patient seen and examined on the day of discharge. Aspirin, Plavix and atorvastatin started. Discharge condition fair Discharge to home Activity as tolerated Please see discharge medicine reconciliation Extracted from: Title: Clinical Document Author: Patricio Deng MD Date: 12/20/17 [facility] Initial Cardiology Consultation Note Reason for Consult: Vertigo Chief Complaint: Vertigo HPI: 62-year-old male who comes in hospital with vertigo and has been diagnosed with acute cerebellar stroke who we are consulted for further workup of his symptoms as well as treat his echo. The patient has no chest pain or shortness of breath. No palpitations. The patient has been started on aspirin as well as Plavix by the neurology team. Patient has also been started on Lipitor. The patient reports no prior cardiac history. He has no home medications which he takes on a daily basis. He reports no exertional complaints at home. He is pretty active from what he is telling me. He says he plays basketball, walks, plays badminton, and kishor a boat without any exertional chest pain or shortness of breath. He said he had a treadmill stress test done many years ago when he was living in [place]. Other than that, he has no other prior cardiac workup. Carotid Dopplers did show a 50-69% blockage in the left internal carotid artery. A neck CTA did not show any hemodynamically significant blockages. His MRI is showing an acute stroke. REVIEW OF SYSTEMS: CONSTITUTIONAL: No fever. No chills. + dizziness. No weakness. EYES: No pain, erythema, or discharge. No blurring of vision. EAR, NOSE AND THROAT: No sore throat, URI symptoms. No epistaxis. No tinnitus. CARDIOVASCULAR: No chest pain. No palpitations. No lower extremity edema. RESPIRATORY: No shortness of breath, cough, pain with respiration, or pleuritic chest pain. No hemoptysis. No dyspnea. No paroxysmal nocturnal dyspnea. GASTROINTESTINAL: Normal appetite. No nausea, vomiting, diarrhea. No pain. No bloating. No melena. GENITOURINARY: No frequency, urgency, nocturia. No hematuria or dysuria. MUSCULOSKELETAL: No arthralgias or myalgias. INTEGUMENTARY: No swelling. No bruising. No contusions. No abrasions. No lymphangitis. NEUROLOGIC: per hpi PSYCHIATRIC: No confusion. METABOLIC: No fatigue. No weakness. No history of thyroid, diabetes or adrenal problems. HEMATOLOGICAL: No bleeding. No petechiae. No bruising. ALLERGY: No asthma. No urticaria. PAST MEDICAL HISTORY: No qualifying data available PAST SURGICAL HISTORY: Cataract surgery Colonoscopy FAMILY HISTORY: No qualifying data available SOCIAL HISTORY: No tobacco, alcohol, or drug abuse MEDICATIONS: See inpatient medications below Allergies: NKDA VitalsTmp(F)[id number] 12/20 07:[id number]------ 12/20 04:[id number]------ 12/20 00:[id number]------ 12/19 20:[id number]------ 12/19 15:[id number]--- 24 Hr Tmax: 98.6F (37.00c) at 12/19 20:52Vital Signs are the last 5 in the past 48 hours. Gen: Alert, no apparent distress Neck: No carotid bruits, No JVD Lungs: CTAB Heart: Regular, normal s1 s2, no murmurs Abd: Soft, nt, nd, +bs Ext: No edema Neuro: Alert and oriented 3 Skin: warm, moist Labs (Last four charted values) WBC 9.1(DEC 19)7.5(DEC 18) Hgb 14.8(DEC 19)15.1(DEC 18) Hct 43.0(DEC 19)44.1(B ) Plt 189(DEC 19)170(B ) Na 140(DEC 19)138(DEC 18) K 3.6(DEC 19)L 3.4(DEC 18) CO2 24(DEC 19)L 23(DEC 18) Cl 108(DEC 19)104(DEC 18) Cr 0.92(DEC 19)1.13(DEC 18) BUN 12(DEC 19)16(DEC 18) Glucose Random H 109(DEC 19)H 173(DEC 18) Ca L 8.3(DEC 19)L 8.3(DEC 18) PT 13.7(DEC 18) INR 1.05(DEC 18) PTT 23.3(DEC 18) Troponin <0.02(DEC 18) CK MB 1.5(DEC 18) Total CK 178(DEC 18) Impression: Acute stroke, cerebellar Dizziness/vertigo Chronic grade 2 diastolic heart failure Plan: We have been consulted for further workup of the patient's vertigo. The patient did have a cerebellar stroke which is the likely etiology. He has no cardiac complaints. No chest pain or shortness of breath. No exertional complaints at home. His echocardiogram shows a normal LV systolic function. His cardiac enzymes are negative in the ER. His EKG does not show any acute changes as of ischemia. He has been started on aspirin, Plavix, and Lipitor by the neurology team. From a coronary standpoint, no further cardiac workup is indicated. He can go home from my standpoint and follow-up with me in a month or so. The plan discussed in detail with the patient as well as his at bedside. All her questions are answered. Discussed also with the primary team. Please call with any questions. Continuous Infusions (1): 12/18/17 Sodium Chloride 0.9% IV 1,000 mL 1,000 mL 75 ml/hr Scheduled Meds (4): 12/18/17 aspirin (aspirin 81 mg tablet, enteric coated) 81 mg PO Q24H 12/19/17 atorvastatin 10 mg PO Bedtime 12/19/17 clopidogrel (Plavix) 75 mg PO Daily 12/18/17 sodium chloride (Saline Flush 0.9%) 10 ml IVP Q12H Extracted from: Title: Clinical Document Author: Frank Daugherty Date: 12/20/17 NEUROLOGY Progress Note - Daily [facility] Completed: Nov, 08:03 by Frank Daugherty MD RM: 103 - 1P, SE [id number] (: [id number]) M Attending: Ronny Sheikh MDPhone: Service: Internal Medicine Reason for Admission: ACUTE ISCHEMIC STROKE Working DRG: Intracranial hemorrhage or cerebral infarction w/o CC/LONGTERM Code status: None Specified=FULL CODECurrent diet: Isolation: No Isolation/Standard Precautions Allergies: NKDA SUBJECTIVE Patient seen and examined states he is been sitting having no headaches at present time and balance point of view he is doing very well also his was present in the room who had questions regarding etiology and patient's symptom interestingly patient has a habit of neck manipulations because of the neck pain he had OBJECTIVE EXAM GEN - NAD HEENT - NCAT> MMM Ext - no cyanosis or clubbing noted Skin - no rash Neuro: Mental status: Alert and oriented x3. Language intact. Follows all commands CN:PERRL, EOMI, no droop, tongue uvula midline, hearing grossly intact, visual field intact by confrontation at bedside, perceives light touch pinprick equal Motor: 5/5 throughout Sensory: intact to LTx4 Cerebellar: intact ftn, hts Abnormal movements: none Gait took a few steps without any difficulty 24hr Labs 12/20 0407 [id number] Trig90 HDL47 L LDL (Calculated)82 VLDL18 CHD Risk3.13 L Estrella still necessary (Yes/No): Line still necessary (Yes/No): VitalsTmp(F)[id number] 12/20 07:[id number]------ 12/20 04:2397.900393/8118------ 12/20 00:2997.568926/7918------ 12/19 20:5298.857370/7218------ 12/19 15:5198.842726/095110--- 24 Hr Tmax: 98.6F (37.00c) at 12/19 20:52Vital Signs are the last 5 in the past 48 hours. DateWt(kg)Wt(lb)Ht(cm)Ht(in)Method 12/19 93.50 205.70Measured 12/18 (initial) 94.55 208.00Estimated 11/20175.42 73.00Stated I&ORecordInOutBal 11/2123hr Tot 1720 0 1720 11/2023hr Tot 2152 4 2148 Medications (8) Active Scheduled Meds (4): 12/18/17 aspirin (aspirin 81 mg tablet, enteric coated) 81 mg PO Q24H 12/19/17 atorvastatin 10 mg PO Bedtime 12/19/17 clopidogrel (Plavix) 75 mg PO Daily 12/18/17 sodium chloride (Saline Flush 0.9%) 10 ml IVP Q12H Unscheduled Meds: None PRN Meds (3): 12/18/17 meclizine 25 mg PO TID 12/18/17 sodium chloride (Saline Flush 0.9%) 10 ml IVP PRN 12/18/17 sodium chloride (Saline Flush 0.9%) 10 ml IVP PRN One Time Meds: None Continuous Infusions (1): 12/18/17 Sodium Chloride 0.9% IV 1,000 mL 1,000 mL 75 ml/hr ASSESSMENT 1. Cerebellar stroke most likely small vessel disease related patient CT angiogram of the neck is unremarkable. 2. Vertigo he has been improving. 3. Neck pain seems like patient has mild element of cervical dystonia which I discussed with him. PLAN & TREATMENT 1. Continue aspirin at present time. 2. Patient is on Plavix. 3. Continue statin. 4. Discussed with them regarding MRI Alyssa echocardiogram report. 5. Continue PT in regards to patient's balance Extracted from: Title: General Admission H&P * Author: Margareth Echeverria MD Date: 12/18/17 Impression and Plan Multiple strokes - Bilateral Cerebellar and L occipital Hyperglycemia Hypokalemia PLAN Switch to Inpatient status Aspirin and statin added by night team Neurology following Findings explain severity of baseline symptoms Permissive HTN Stroke work up underway Await hgb a1c Replace electrolytes as needed DVTP - Per protocol Dispo - Will need at least 2 midnights stay
--- OUTSIDE RECORDS SUMMARY | 2018-08-01 00:41 | XMS REPORT | Summary of Care ---
Author Author [facility] Address Unknown Phone Unavailable Encounter HQ Janina_myles(FIN) [id number] Date(s): 02/04/18 - 03/05/18 [facility] Discharge Disposition: Home or Self Care Attending [...]
--- OUTSIDE RECORDS SUMMARY | 2018-08-01 00:41 | XMS REPORT | Summary of Care ---
Author Author [facility] Address Unknown Phone Unavailable Encounter HQ Janina_myles(FIN) [id number] Date(s): 03/18/18 - 04/16/18 [facility] Discharge Disposition: Home or Self Care Attending [...]
== END | disposition home or self-care (01) ==
LOC: OR 05:01
PROVIDERS: ATTEND Urology
DX: N20.0 Calculus of kidney (principal); N40.1 Benign prostatic hyperplasia with lower urinary tract symptoms; N13.8 Other obstructive and reflux uropathy; N32.89 Other specified disorders of bladder; I10 Essential (primary) hypertension; I48.91 Unspecified atrial fibrillation; K21.9 Gastro-esophageal reflux disease without esophagitis; F32.9 Major depressive disorder, single episode, unspecified; Z01.818 Encounter for other preprocedural examination; Z79.02 Long term (current) use of antithrombotics/antiplatelets; Z86.73 Personal history of transient ischemic attack (TIA), and cerebral infarction without residual deficits
CPT/HCPCS: 50590; 71046; 74018; C1758; J0696; J1100; J2001; J2250; J2405; Q9967

== ENCOUNTER → 2018-08-06 | Outpatient (CLI) | payer OTHER ==
[~2018-08-06] MED LIST changes: -CEFTRIAXONE SOD 1 GM VIAL ONE; -DESFLURANE 240 ML BTL INH ONE; -DEXAMETHASONE SOD PHOS INJ 4 MG/ML VIAL ONE; -FENTANYL CITRATE/PF 100MCG/2 ML INJ ONE; -IOPAMIDOL 300MG/ML 50ML INFUS..BTL IV ONE; -LIDOCAINE HCL 2% LOCAL INJ 5 ML SDV VIAL INJ ONE; -MIDAZOLAM HCL 2 MG/2 ML VIAL ONE; -ONDANSETRON HCL INJ 2 MG/ML VIAL ONE; -PROPOFOL IV EMULSION 10 MG/ML 20 ML VIAL ONE
--- NOTE | 2018-08-06 11:31 | Diagnostic Imaging Report ---
PROCEDURE:X-RAY ABDOMEN - KUB COMPARISON:KUB 06/07/[address] Abdomen/Pelvis 03/15/18. INDICATIONS:CALCULUS OF KIDNEY FINDINGS: Known left sided renal stones are likely obscured by overlying bowel gas and motion artifact. No stones projecting over the expected location of the ureters or bladders. There is a non-obstructive bowel-gas pattern. There are no acute osseous abnormalities. The lung bases are clear. CONCLUSION: Known left sided renal stones are likely obscured by overlying bowel gas and motion artifact. No stones projecting over the expected location of the ureters or bladders. Dictated by: VERONICA PARKER M.D. on 08/06/2018 at 11:39 Electronically approved by: VERONICA PARKER M.D. on 08/06/2018 at 11:39
== END ==
LOC: RAD 10:22
PROVIDERS: ATTEND Urology
DX: N20.0 Calculus of kidney (principal)
CPT/HCPCS: 74018

== ENCOUNTER → 2020-03-10 | Outpatient (CLI) | payer OTHER ==
--- NOTE | 2020-03-10 18:17 | Diagnostic Imaging Report ---
EXAM: Abdomen 1 View INDICATION: Follow up stones ^[id number] ^[id number] COMPARISON: Abdominal x-ray dated 08/06/2018 FINDINGS: Nonobstructive bowel gas pattern. No signs of pneumoperitoneum. Large colonic stool burden, representing constipation. No calcification overlying renal shadows. Previously seen tiny calcification projecting over right renal shadow is not visualized on current exam. No acute osseous abnormality. Degenerative changes of spine and bilateral hip joints. IMPRESSION: No definite evidence of nephrolithiasis. Nonobstructive bowel gas pattern. Signed by: Dr. Stephen May MD on 03/10/2020 6:11 PM
== END ==
LOC: RAD 17:11
PROVIDERS: ATTEND Urology
DX: N20.0 Calculus of kidney (principal)
CPT/HCPCS: 74018

== ENCOUNTER → 2021-01-10 | Outpatient (CLI) | payer MEDICARE | LOC: RAD 15:46 | PROVIDERS: ATTEND Urology | DX: N20.0 Calculus of kidney (principal) | CPT/HCPCS: 74018 ==

== ENCOUNTER → 2021-10-17 | Outpatient (CLI) | payer OTHER ==
[~2021-10-17] MED LIST changes: +IOPAMIDOL 370 MG/ML 200 ML INFUS..BTL INJ ONE; +SODIUM CHLORIDE 0.9% 250ML 250 ML ONE
[2021-10-17 17:44] LABS: CREATININE, SERUM 1.25 mg/dL (0.72-1.25)
== END ==
LOC: CT 17:07
PROVIDERS: ATTEND Urology
DX: R31.21 Asymptomatic microscopic hematuria (principal)
CPT/HCPCS: 36415; 74178; 82565; 84520; J7050; Q9967

== ENCOUNTER → 2024-07-02 | Outpatient (REF) | payer MEDICARE ==
[~2024-07-02] MED LIST changes: -IOPAMIDOL 370 MG/ML 200 ML INFUS..BTL INJ ONE; -SODIUM CHLORIDE 0.9% 250ML 250 ML ONE
== END ==
LOC: RAD 14:45
PROVIDERS: ATTEND Urology
DX: N20.0 Calculus of kidney (principal); R31.21 Asymptomatic microscopic hematuria
CPT/HCPCS: 74018

== ENCOUNTER → 2025-02-19 | Outpatient (REF) | payer MEDICARE | LOC: US 12:49 | PROVIDERS: ATTEND Urology | DX: R31.21 Asymptomatic microscopic hematuria (principal) | CPT/HCPCS: 74018; 76770; 76857 ==